=== PATIENT | male | born 1995 | race Caucasian/White ===

== ENCOUNTER 2023-10-20 10:59 | Emergency (ER) | payer OTHER, SELFPAY ==
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
--- NOTE | 2023-10-20 12:08 | PC.NURSE ---
mesha and have arrived at this time.
== END 2023-10-20 14:00 | disposition expired ==
PROVIDERS: Emergency Provider Student in an Organized Health Care Education/Training Program
DX: S08.0XXA Avulsion of scalp, initial encounter (principal); S01.81XA Laceration without foreign body of other part of head, initial encounter; S81.011A Laceration without foreign body, right knee, initial encounter; S59.911A Unspecified injury of right forearm, initial encounter; S89.91XA Unspecified injury of right lower leg, initial encounter; I46.8 Cardiac arrest due to other underlying condition; V47.5XXA Car driver injured in collision with fixed or stationary object in traffic accident, initial encounter
CPT/HCPCS: 92950; 99285